=== PATIENT | female | born 1995 | race Asian ===

== ENCOUNTER 2018-02-04 09:46 | Inpatient (IN) | payer BC ==
[~2018-02-04] VITALS: Ht 162.6 cm; Wt 69.9 kg
[2018-02-04 09:51] VITALS: BP_SYST 140
[2018-02-04] MEDS ORDERED: NACL 0.9% 1,000 ML IV ONE ×2 (10:15→12:00)
[2018-02-04] MEDS ORDERED: IOHEXOL 100 ML IV ONE (10:38)
[2018-02-04] MEDS ORDERED: PIPERACILLIN/TAZO 3.375 GM in NS 50 ML IV ONE (10:45)
[2018-02-04] MEDS ORDERED: VANCOMYCIN HCL 1,000 MG in NS 250 ML IV ONE (10:45)
[2018-02-04] MEDS ORDERED: DEXAMETHASONE SOD PHOSPHATE 10 MG/ML VIAL IVP ONE (10:45)
[2018-02-04 10:47] LABS: BASOPHILS # (AUTO) 0.1 K/uL (0.0-0.2); BASOPHILS % (AUTO) 0.5 % (0.0-2.0); EOSINOPHILS # (AUTO) 0.1 K/uL (0.0-0.4); EOSINOPHILS % (AUTO) 0.7 % (0.0-4.0); HEMATOCRIT 43.3 % (36-48); HEMOGLOBIN 13.6 g/dL (12.0-16.0); LYMPHOCYTES # (AUTO) 0.8 K/uL (1.0-5.5); LYMPHOCYTES % (AUTO) 6.1 % (20.5-51.5); MEAN CORPUSCULAR HEMOGLOBIN 28 pg (27-31); MEAN CORPUSCULAR HGB CONC 31 % (32-36); MEAN CORPUSCULAR VOLUME 90 fL (79.0-98.0); NEUTROPHILS # (AUTO) 10.5 K/uL (1.8-7.7); NEUTROPHILS % (AUTO) 84.7 % (40.0-70.0); PLATELET COUNT (AUTO) 260 K/uL (130-430); RED BLOOD CELL COUNT(AUTO) 4.81 MIL/uL (4.2-6.2); RED CELL DISTRIBUTION WIDTH 13.3 % (9.0-15.0); WHITE BLOOD COUNT (AUTO) 12.5 K/uL (4.8-10.8)
[2018-02-04] MEDS ORDERED: PIPERACILLIN/TAZOBACTAM 3.375 GM/VIAL (ZOSYN) IV ONE (10:55)
[2018-02-04 11:10] LABS: CALCIUM 9.5 mg/dL (8.4-11.0); CREATININE 0.74 mg/dL (0.55-1.30); POTASSIUM 3.6 mmol/L (3.5-5.1)
[2018-02-04 11:16] LABS: TOTAL BILIRUBIN 0.5 mg/dL (0.0-1.0)
[2018-02-04] MEDS ORDERED: VANCOMYCIN HCL 1000 MG/VIAL IV ONE (12:04)
[2018-02-04 12:32] VITALS: BP_SYST 108
[2018-02-04] MEDS ORDERED: traMADol HCL HCL 50 MG TABLET (ULTRAM) PO PRN (16:15)
[2018-02-04] MEDS ORDERED: ONDANSETRON HCL 4 MG/2 ML VIAL IVP PRN (16:15)
[2018-02-04] MEDS ORDERED: MORPHINE 4 MG/ML INJ. SYRINGE IVP PRN (16:15)
[2018-02-04] MEDS ORDERED: TEMAZEPAM 15 MG CAPSULE PO PRN (16:30)
[2018-02-04 17:02] VITALS: BP_SYST 101
[2018-02-04] MEDS ORDERED: LR 500 ML IV ONE (17:30)
[2018-02-04] MEDS: AMPICILLIN SODIUM/SULBACTAM NA 3 GM in NS 100 ML IV SCH (17:49)
[2018-02-04 19:45] VITALS: BP_SYST 104
[2018-02-04] MEDS: CLARITHROMYCIN 500 MG TABLET PO SCH (21:26)
[2018-02-04] MEDS: BENZOCAINE/MENTHOL 1 EACH LOZENGE MM PRN (21:34)
[2018-02-05 00:15] VITALS: BP_SYST 135
[2018-02-05] MEDS: AMPICILLIN SODIUM/SULBACTAM NA 3 GM in NS 100 ML IV SCH ×5 (00:20→23:43)
[2018-02-05] MEDS: ACETAMINOPHEN 325 MG TABLET PO PRN ×5 (00:22→23:43)
[2018-02-05 07:30] VITALS: BP_SYST 102
[2018-02-05] MEDS: CLARITHROMYCIN 500 MG TABLET PO SCH ×2 (08:05→21:13)
[2018-02-05] MEDS: BENZOCAINE/MENTHOL 1 EACH LOZENGE MM PRN (08:05)
[2018-02-05 09:17] LABS: BASOPHILS % (AUTO) 0.1 % (0.0-2.0); HEMATOCRIT 36.9 % (36-48); HEMOGLOBIN 12.6 g/dL (12.0-16.0); LYMPHOCYTES # (AUTO) 0.9 K/uL (1.0-5.5); LYMPHOCYTES % (AUTO) 8.4 % (20.5-51.5); MEAN CORPUSCULAR HEMOGLOBIN 31 pg (27-31); MEAN CORPUSCULAR HGB CONC 34 % (32-36); MEAN CORPUSCULAR VOLUME 90 fL (79.0-98.0); MONOCYTES # (AUTO) 0.5 K/uL (0.0-1.0); NEUTROPHILS # (AUTO) 9.1 K/uL (1.8-7.7); NEUTROPHILS % (AUTO) 86.5 % (40.0-70.0); PLATELET COUNT (AUTO) 259 K/uL (130-430); RED CELL DISTRIBUTION WIDTH 13.1 % (9.0-15.0); WHITE BLOOD COUNT (AUTO) 10.5 K/uL (4.8-10.8)
[2018-02-05 09:34] LABS: ALBUMIN 2.8 g/dL (3.4-4.8); CALCIUM 8.6 mg/dL (8.4-11.0); CREATININE 0.65 mg/dL (0.55-1.30); POTASSIUM 4.2 mmol/L (3.5-5.1); TOTAL BILIRUBIN 0.3 mg/dL (0.0-1.0)
[2018-02-05 10:22] LABS: MONOTEST NEGATIVE (NEGATIVE)
[2018-02-05 12:00] VITALS: BP_SYST 103
[2018-02-05 16:00] VITALS: BP_SYST 115
[2018-02-05 19:45] VITALS: BP_SYST 121
[2018-02-06 00:01] VITALS: BP_SYST 120
[2018-02-06] MEDS: AMPICILLIN SODIUM/SULBACTAM NA 3 GM in NS 100 ML IV SCH ×2 (06:11→11:45)
[2018-02-06] MEDS: ACETAMINOPHEN 325 MG TABLET PO PRN ×2 (06:12→11:46)
[2018-02-06 07:12] LABS: BASOPHILS # (AUTO) 0.1 K/uL (0.0-0.2); EOSINOPHILS % (AUTO) 0.4 % (0.0-4.0); HEMATOCRIT 34.6 % (36-48); HEMOGLOBIN 11.5 g/dL (12.0-16.0); LYMPHOCYTES # (AUTO) 1.7 K/uL (1.0-5.5); LYMPHOCYTES % (AUTO) 23.6 % (20.5-51.5); MEAN CORPUSCULAR HEMOGLOBIN 30 pg (27-31); MEAN CORPUSCULAR HGB CONC 33 % (32-36); MEAN CORPUSCULAR VOLUME 90 fL (79.0-98.0); MONOCYTES # (AUTO) 0.7 K/uL (0.0-1.0); MONOCYTES % (AUTO) 9.8 % (1.7-9.3); NEUTROPHILS # (AUTO) 4.8 K/uL (1.8-7.7); NEUTROPHILS % (AUTO) 65.2 % (40.0-70.0); PLATELET COUNT (AUTO) 259 K/uL (130-430); RED BLOOD CELL COUNT(AUTO) 3.84 MIL/uL (4.2-6.2); RED CELL DISTRIBUTION WIDTH 12.7 % (9.0-15.0); WHITE BLOOD COUNT (AUTO) 7.3 K/uL (4.8-10.8)
[2018-02-06 07:30] VITALS: BP_SYST 113
[2018-02-06 07:46] LABS: CALCIUM 8.2 mg/dL (8.4-11.0); CREATININE 0.65 mg/dL (0.55-1.30); POTASSIUM 3.8 mmol/L (3.5-5.1)
[2018-02-06] MEDS: CLARITHROMYCIN 500 MG TABLET PO SCH (09:26)
[2018-02-06 10:51] VITALS: BP_SYST 99
[2018-02-06 12:19] VITALS: BP_SYST 110
== END 2018-02-06 14:22 | disposition home or self-care (01) | DRG 872 ==
LOC: SED 09:46 → SMU 11:55
PROVIDERS: ADMIT Internal Medicine; ATTEND Internal Medicine
DX: A41.9 Sepsis, unspecified organism (principal); J36 Peritonsillar abscess; J39.1 Other abscess of pharynx
CPT/HCPCS: 36415; 70491-TC; 80048; 80053; 81025; 83605; 84703; 85025; 86308-TC; 86403; 87040-TC; 87081; 96365; 96366; 96367; 96375; 99285; J0295; J1100; J2543; J3370; J7030; J7120; Q9967